=== PATIENT | male | born 1970 | race Caucasian/White ===

== ENCOUNTER 2018-07-10 14:53 | Emergency (ER) | payer BC ==
[~2018-07-10] VITALS: Ht 198.1 cm; Wt 136.1 kg
[~2018-07-10 14:53] MED LIST: CETI10; COLCRYS0.6 MG PO; CRUTCH2 USE; FAMO20 PO; FEXPSEER; HYDACE5 PO; IBUP800 PO; INDO25 PO; NAPR500 PO; NEBI10 PO; OXYACE5T PO; PRED20 PO; Percocet 5-3251 EACH PO
[2018-07-10] MEDS ORDERED: HYDR1TAB94 PO (16:14)
[2018-07-10] MEDS ORDERED: IBUP600 PO (16:14)
== END 2018-07-10 16:28 | disposition home or self-care (01) ==
LOC: ER 14:53
DX: S51.811A Laceration without foreign body of right forearm, initial encounter (principal); S43.401A Unspecified sprain of right shoulder joint, initial encounter; I10 Essential (primary) hypertension; Z23 Encounter for immunization; Z87.891 Personal history of nicotine dependence; V00.131A Fall from skateboard, initial encounter
CPT/HCPCS: 73030; 90471; 90714; 99283-25

== ENCOUNTER 2020-12-03 12:22 | Day surgery (SDC) | payer BC ==
[~2020-12-03] VITALS: Ht 198.1 cm; Wt 132.6 kg
[~2020-12-03 12:22] MED LIST changes: +B-121000 MC3 PO; +FURO40 PO; +GABA100 PO; +HYDR1TAB94 PO; +IBUP600 PO; +LEVOTHYROXINE25 MCG PO; +LOSARTAN POTAS100 M1 PO; +METF500 PO; +NEBI5 PO
== END 2020-12-03 14:03 | disposition home or self-care (01) ==
LOC: ORSCSDS 12:22
PROVIDERS: Surgery
PROC: 0DJD8ZZ Inspection of Lower Intestinal Tract, Via Natural or Artificial Opening Endoscopic (ICD-10-PCS; principal; 2020-12-03 13:30)
DX: Z12.11 Encounter for screening for malignant neoplasm of colon (principal); K57.30 Diverticulosis of large intestine without perforation or abscess without bleeding; I10 Essential (primary) hypertension; E78.5 Hyperlipidemia, unspecified; Z87.891 Personal history of nicotine dependence; Z79.899 Other long term (current) drug therapy
CPT/HCPCS: 82947; J2704; J7120